=== PATIENT | male | born 1960 | race Caucasian/White ===

== ENCOUNTER → 2020-05-15 | Outpatient (CLI) | payer OTHER | END | disposition home or self-care (01) | LOC: CFH 15:16 | PROVIDERS: ATTEND Orthopaedic Surgery | DX: M24.672 Ankylosis, left ankle (principal); M19.072 Primary osteoarthritis, left ankle and foot; M67.02 Short Achilles tendon (acquired), left ankle ==

== ENCOUNTER 2020-10-18 08:26 | Outpatient (CLI) | payer OTHER | END 2020-10-18 23:59 | disposition home or self-care (01) | LOC: ROC 08:26 | PROVIDERS: ATTEND Radiology Radiation Oncology | DX: Z08 Encounter for follow-up examination after completed treatment for malignant neoplasm (principal); M19.072 Primary osteoarthritis, left ankle and foot; Z85.46 Personal history of malignant neoplasm of prostate; Z87.891 Personal history of nicotine dependence | CPT/HCPCS: 99214; G0463 ==

== ENCOUNTER 2020-11-27 07:17 | Outpatient (CLI) | payer OTHER ==
[2020-11-27] MEDS ORDERED: MIDAZOLAM 1 MG/ML, 5ML IVPush ONE (09:30)
[2020-11-27] MEDS ORDERED: FENTANYL PF 100 MCG/2ML IVPush ONE (09:30)
[2020-11-27] MEDS ORDERED: LIDOCAINE/PF 1%, 30ML IV ONE (09:30)
== END 2020-11-27 23:59 | disposition home or self-care (01) ==
LOC: ROC 07:17
PROVIDERS: ATTEND Radiology Radiation Oncology
DX: C61 Malignant neoplasm of prostate (principal)
CPT/HCPCS: 55876; 76942; 77332; 99156; A4648; J2250; J3010; J3490

== ENCOUNTER → 2021-03-13 | Outpatient (CLI) | payer OTHER | END | disposition home or self-care (01) | LOC: ROC 07:23 | PROVIDERS: ATTEND Radiology Radiation Oncology | DX: Z08 Encounter for follow-up examination after completed treatment for malignant neoplasm (principal); Z85.46 Personal history of malignant neoplasm of prostate | CPT/HCPCS: 99212; G0463 ==